=== PATIENT | male | born 1940 | race Asian ===

== ENCOUNTER 2016-09-19 10:53 | Outpatient (CLI) | payer OTHER, MEDICARE ==
[~2016-09-19 10:53] MED LIST: BENICAR HCT1 TA2 PO; CARV25TA PO; DIGOXIN0.25 MG PO; ELIQUIS5 MG OR; FURO40TA93 PO; SPIRONOLACT25 MG PO; TAMSULOSIN0.4 MG PO
[2016-09-19 11:17] LABS: POTASSIUM 3.2 mmol/L (3.6-5.2)
== END 2016-09-19 19:32 | disposition home or self-care (01) ==
LOC: LABW 10:53
PROVIDERS: Internal Medicine Cardiovascular Disease
DX: Z79.899 Other long term (current) drug therapy (principal); R06.02 Shortness of breath; Z51.81 Encounter for therapeutic drug level monitoring
CPT/HCPCS: 36415; 80048; 83880

== ENCOUNTER 2016-10-08 05:41 | Inpatient (IN) | payer OTHER, MEDICARE ==
[2016-10-08] VITALS (7 sets, daily range): BP systolic 86–111; BP diastolic 45–69; TEMP 97.4–98.4; Ht 167.6 cm; Wt 74.4 kg
[~2016-10-08] VITALS: Ht 167.6 cm; Wt 74.4 kg
[2016-10-08] MEDS ORDERED: FUROSEMIDE40 MG PO (06:06)
[2016-10-08] MEDS ORDERED: ASPIRIN81 M2 PO (06:07)
[2016-10-08 06:34] LABS: POTASSIUM 3.9 mmol/L (3.6-5.2)
[2016-10-08 06:38] LABS: PLATELET COUNT 214 K/uL (142-355)
[2016-10-08 06:44] LABS: PARTIAL THROMBOPLASTIN TIME 24.5 SECONDS (24.5-33.6)
[2016-10-09] VITALS: BP 97/40; TEMP 98.8
[2016-10-09 04:00] VITALS: BP 110/54; TEMP 98
[2016-10-09 06:08] LABS: POTASSIUM 2.9 mmol/L (3.6-5.2)
[2016-10-09 06:40] LABS: PLATELET COUNT 186 K/uL (142-355)
[2016-10-09 08:00] VITALS: BP 118/55; TEMP 97.2
[2016-10-09 09:10] VITALS: BP 89/53; BP 92/54; BP 94/55
--- NOTE | 2016-10-09 09:10 | NUR ---
ORTHOSTATIC VITALS PERFORMED: SUPINE 94/55 P 63; SITTING 92/54 P 64; STANDING 89/53 P 63
[2016-10-09 12:00] VITALS: BP 99/56; TEMP 98
--- NOTE | 2016-10-09 14:10 | NUR ---
D/C INSTRUCTIONS GIVEN TO AND PT. IV L FA 20G D/C'D CATH TIP INTACT. VERBALIZED UNDERSTANDING INSTRUCTIONS.
--- NOTE | 2016-10-11 11:59 | NUR ---
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
== END 2016-10-09 14:35 | disposition home or self-care (01) | DRG 309 ==
LOC: ED 05:41 → MED/SURG 06:45
PROVIDERS: Internal Medicine
DX: I48.91 Unspecified atrial fibrillation (principal); I50.22 Chronic systolic (congestive) heart failure; S00.83XA Contusion of other part of head, initial encounter; I95.89 Other hypotension; W19.XXXA Unspecified fall, initial encounter; Y93.89 Activity, other specified; Y92.89 Other specified places as the place of occurrence of the external cause
CPT/HCPCS: 36415; 80053; 80162; 81000; 83735; 83880; 85027; 85610; 85730; 93005; 96360

== ENCOUNTER 2016-10-31 12:06 | Outpatient (CLI) | payer OTHER, MEDICARE ==
[~2016-10-31 12:06] MED LIST changes: +ASPIRIN81 M2 PO; +FUROSEMIDE40 MG PO
[2016-10-31 12:41] LABS: POTASSIUM 2.8 mmol/L (3.6-5.2)
== END 2016-10-31 19:03 | disposition home or self-care (01) ==
LOC: LABW 12:06
PROVIDERS: Internal Medicine
DX: R60.0 Localized edema (principal)
CPT/HCPCS: 36415; 80048

== ENCOUNTER 2016-11-07 12:44 | Outpatient (CLI) | payer OTHER, MEDICARE ==
[2016-11-07 13:18] LABS: POTASSIUM 3.6 mmol/L (3.6-5.2)
== END 2016-11-07 22:52 | disposition home or self-care (01) ==
LOC: LABW 12:44
PROVIDERS: Internal Medicine Cardiovascular Disease
DX: R06.02 Shortness of breath (principal); Z79.899 Other long term (current) drug therapy; Z51.81 Encounter for therapeutic drug level monitoring
CPT/HCPCS: 36415; 80048; 83880

== ENCOUNTER 2016-11-28 14:44 | Outpatient (CLI) | payer OTHER, MEDICARE ==
[2016-11-28 15:19] LABS: POTASSIUM 4.5 mmol/L (3.6-5.2)
== END 2016-11-28 19:41 | disposition home or self-care (01) ==
LOC: LABW 14:44
PROVIDERS: Internal Medicine Cardiovascular Disease
DX: R06.02 Shortness of breath (principal); Z79.899 Other long term (current) drug therapy; Z51.81 Encounter for therapeutic drug level monitoring
CPT/HCPCS: 36415; 80048; 83880

== ENCOUNTER 2016-12-12 12:23 | Outpatient (CLI) | payer OTHER, MEDICARE ==
[2016-12-12 12:54] LABS: POTASSIUM 3.3 mmol/L (3.6-5.2)
== END 2016-12-12 13:23 | disposition home or self-care (01) ==
LOC: LABW 12:23
PROVIDERS: Internal Medicine Cardiovascular Disease
DX: I50.20 Unspecified systolic (congestive) heart failure (principal); Z79.899 Other long term (current) drug therapy; R06.02 Shortness of breath; Z51.81 Encounter for therapeutic drug level monitoring
CPT/HCPCS: 36415; 80048; 83880

== ENCOUNTER 2016-12-19 15:59 | Outpatient (CLI) | payer OTHER, MEDICARE ==
[2016-12-19 16:42] LABS: POTASSIUM 2.8 mmol/L (3.6-5.2)
== END 2016-12-19 19:10 | disposition home or self-care (01) ==
LOC: LABW 15:59
PROVIDERS: Internal Medicine Cardiovascular Disease
DX: Z79.899 Other long term (current) drug therapy (principal); Z51.81 Encounter for therapeutic drug level monitoring
CPT/HCPCS: 36415; 80048

== ENCOUNTER 2016-12-26 10:41 | Outpatient (CLI) | payer OTHER, MEDICARE ==
[2016-12-26 11:02] LABS: POTASSIUM 3.8 mmol/L (3.6-5.2)
== END 2016-12-26 19:06 | disposition home or self-care (01) ==
LOC: LABW 10:41
PROVIDERS: Internal Medicine Cardiovascular Disease
DX: I50.9 Heart failure, unspecified (principal)
CPT/HCPCS: 36415; 80048; 83880

== ENCOUNTER 2017-01-02 10:39 | Outpatient (CLI) | payer OTHER, MEDICARE ==
[2017-01-02 11:01] LABS: POTASSIUM 4.3 mmol/L (3.6-5.2)
== END 2017-01-02 19:05 | disposition home or self-care (01) ==
LOC: LABW 10:39
PROVIDERS: Internal Medicine Cardiovascular Disease
DX: I50.9 Heart failure, unspecified (principal); Z79.899 Other long term (current) drug therapy; Z51.81 Encounter for therapeutic drug level monitoring
CPT/HCPCS: 36415; 80048; 83880

== ENCOUNTER 2017-01-15 09:19 | Outpatient (CLI) | payer OTHER, MEDICARE ==
[2017-01-15 09:43] LABS: POTASSIUM 4.5 mmol/L (3.6-5.2)
== END 2017-01-15 11:15 | disposition home or self-care (01) ==
LOC: LABW 09:19
PROVIDERS: Internal Medicine Cardiovascular Disease
DX: I50.9 Heart failure, unspecified (principal); Z79.899 Other long term (current) drug therapy; Z51.81 Encounter for therapeutic drug level monitoring
CPT/HCPCS: 36415; 80048; 83880

== ENCOUNTER 2017-01-16 12:37 | Outpatient (CLI) | payer OTHER, MEDICARE | END 2017-01-16 13:45 | disposition home or self-care (01) | LOC: RESP 12:37 | DX: E78.4 Other hyperlipidemia (principal); I10 Essential (primary) hypertension; R53.83 Other fatigue | CPT/HCPCS: 93306 ==

== ENCOUNTER 2017-01-23 11:52 | Outpatient (CLI) | payer OTHER, MEDICARE ==
[2017-01-23 12:14] LABS: POTASSIUM 4.2 mmol/L (3.6-5.2)
== END 2017-01-23 19:32 | disposition home or self-care (01) ==
LOC: LABW 11:52
PROVIDERS: Internal Medicine Cardiovascular Disease
DX: I50.9 Heart failure, unspecified (principal); Z79.899 Other long term (current) drug therapy; Z51.81 Encounter for therapeutic drug level monitoring
CPT/HCPCS: 36415; 80048; 83880

== ENCOUNTER 2017-03-18 08:23 | Outpatient (CLI) | payer OTHER, MEDICARE ==
[2017-03-18 08:59] LABS: PLATELET COUNT 156 K/uL (142-355)
[2017-03-18 09:30] LABS: POTASSIUM 5.1 mmol/L (3.6-5.2)
== END 2017-03-18 09:30 | disposition home or self-care (01) ==
LOC: LABW 08:23
PROVIDERS: Internal Medicine
DX: E11.9 Type 2 diabetes mellitus without complications (principal); I48.91 Unspecified atrial fibrillation; N40.0 Benign prostatic hyperplasia without lower urinary tract symptoms
CPT/HCPCS: 36415; 80053; 80061; 81000; 83036; 84153; 84443; 85027

== ENCOUNTER 2017-08-14 10:43 | Outpatient (CLI) | payer OTHER, MEDICARE ==
[2017-08-14 11:23] LABS: POTASSIUM 5.3 mmol/L (3.6-5.2)
[2017-09-15] MEDS ORDERED: BUMETANIDE2 MG PO (11:41)
== END 2017-08-14 21:12 | disposition home or self-care (01) ==
LOC: LABW 10:43
PROVIDERS: Internal Medicine Cardiovascular Disease
DX: I50.9 Heart failure, unspecified (principal)
CPT/HCPCS: 36415; 80048; 83880

== ENCOUNTER 2017-09-04 10:33 | Outpatient (CLI) | payer OTHER, MEDICARE ==
[2017-09-04 11:10] LABS: POTASSIUM 3.9 mmol/L (3.6-5.2)
[2017-09-15] MEDS ORDERED: BUMETANIDE2 MG PO (11:41)
== END 2017-09-04 19:04 | disposition home or self-care (01) ==
LOC: LABW 10:33
PROVIDERS: Internal Medicine Cardiovascular Disease
DX: Z79.899 Other long term (current) drug therapy (principal); Z51.81 Encounter for therapeutic drug level monitoring; I50.9 Heart failure, unspecified
CPT/HCPCS: 36415; 80048; 80162; 83880

== ENCOUNTER 2017-09-15 11:23 | Observation (INO) | payer OTHER, MEDICARE ==
[~2017-09-15] VITALS: Ht 172.7 cm; Wt 74.0 kg
[2017-09-15 11:39] VITALS: BP 141/80; TEMP 96.6
[2017-09-15] MEDS ORDERED: POT CHLORIDE PO (11:40)
[2017-09-15] MEDS ORDERED: BUMETANIDE2 MG PO ×2 (11:41)
[2017-09-15 13:52] LABS: POTASSIUM 4.4 mmol/L (3.6-5.2)
[2017-09-15 13:54] LABS: PLATELET COUNT 137 K/uL (142-355)
[2017-09-15 18:02] VITALS: BP 96/69; TEMP 97; Ht 172.7 cm; Wt 74.0 kg
[2017-09-15] MEDS ORDERED: SPIR50TA8 PO (18:11)
[2017-09-15] MEDS ORDERED: POT CHLORIDE10 MEQ PO (18:12)
[2017-09-15] MEDS ORDERED: BUMEX1 MG PO (18:12)
[2017-09-15 20:00] VITALS: BP 94/57; TEMP 97.5
[2017-09-16] VITALS: BP 109/58; TEMP 98.2
[2017-09-16 04:00] VITALS: BP 98/60; TEMP 97.6
[2017-09-16 04:04] LABS: PLATELET COUNT 115 K/uL (142-355)
[2017-09-16 04:31] LABS: POTASSIUM 4.3 mmol/L (3.6-5.2)
[2017-09-16 08:00] VITALS: BP 103/55; TEMP 97.7
[2017-09-16 12:00] VITALS: BP 97/61; TEMP 97.3
[2017-09-16 15:53] VITALS: BP 93/63; TEMP 97.9
== END 2017-09-16 19:35 | disposition short-term general hospital (02) ==
LOC: ED 11:23 → MED/SURG 16:41
PROVIDERS: Specialist; ADMIT Internal Medicine
DX: I50.22 Chronic systolic (congestive) heart failure (principal); I48.2 Chronic atrial fibrillation; R06.89 Other abnormalities of breathing; I12.9 Hypertensive chronic kidney disease with stage 1 through stage 4 chronic kidney disease, or unspecified chronic kidney disease; N18.4 Chronic kidney disease, stage 4 (severe)
CPT/HCPCS: 36415; 36600; 80048; 80053; 81000; 82550; 82805; 83605; 83735; 83880; 84100; 84484; 85007; 85027; 85379; 87040; 93005; 94760; 96372; 96374; 99220; 99284; G0378; J1650; J2060

== ENCOUNTER 2017-09-16 19:38 | Outpatient (CLI) | payer OTHER, MEDICARE ==
[~2017-09-16 19:38] MED LIST changes: +BUMETANIDE2 MG PO; +BUMEX1 MG PO; +POT CHLORIDE PO; +POT CHLORIDE10 MEQ PO; +SPIR50TA8 PO
== END 2017-09-16 20:47 | disposition short-term general hospital (02) ==
LOC: AMB 19:38
DX: I50.22 Chronic systolic (congestive) heart failure (principal); I48.2 Chronic atrial fibrillation; R06.89 Other abnormalities of breathing; I12.9 Hypertensive chronic kidney disease with stage 1 through stage 4 chronic kidney disease, or unspecified chronic kidney disease; N18.4 Chronic kidney disease, stage 4 (severe)
CPT/HCPCS: A0425; A0429

== ENCOUNTER 2017-10-15 03:11 | Emergency (ER) | payer OTHER, MEDICARE ==
[~2017-10-15] VITALS: Ht 172.7 cm; Wt 67.1 kg
[2017-10-15 03:16] VITALS: TEMP 97.4
[2017-10-15 03:47] LABS: PLATELET COUNT 153 K/uL (142-355)
[2017-10-15 04:25] LABS: PARTIAL THROMBOPLASTIN TIME 25.2 SECONDS (24.5-33.6)
[2017-10-15 05:46] LABS: POTASSIUM 5.6 mmol/L (3.6-5.2)
[2017-10-15 06:20] VITALS: BP 106/61
== END 2017-10-15 06:27 | disposition home or self-care (01) ==
LOC: ED 03:11
DX: K92.0 Hematemesis (principal); I48.91 Unspecified atrial fibrillation
CPT/HCPCS: 36415; 74022; 80053; 85027; 85610; 85730; 93005; 96365; 96374; 96375; 99284; J2405; J3490

== ENCOUNTER 2017-10-16 11:47 | Outpatient (CLI) | payer OTHER, MEDICARE ==
[2017-10-16 12:05] LABS: PLATELET COUNT 131 K/uL (142-355)
[2017-10-16 12:17] LABS: POTASSIUM 4.1 mmol/L (3.6-5.2)
== END 2017-10-16 19:23 | disposition home or self-care (01) ==
LOC: LABW 11:47
PROVIDERS: Internal Medicine
DX: K92.0 Hematemesis (principal)
CPT/HCPCS: 36415; 80048; 85027

== ENCOUNTER 2017-10-17 11:26 | Day surgery (SDC) | payer OTHER, MEDICARE ==
[~2017-10-17] VITALS: Ht 30.5 cm; Wt 0.0 kg
[2017-10-17 14:04] LABS: PLATELET COUNT 150 K/uL (142-355)
== END 2017-10-17 15:40 | disposition home or self-care (01) ==
LOC: OR 11:26
PROVIDERS: Student in an Organized Health Care Education/Training Program
PROC: 0DJ08ZZ Inspection of Upper Intestinal Tract, Via Natural or Artificial Opening Endoscopic (ICD-10-PCS; principal; 2017-10-17)
DX: K29.60 Other gastritis without bleeding (principal); K25.9 Gastric ulcer, unspecified as acute or chronic, without hemorrhage or perforation; K44.9 Diaphragmatic hernia without obstruction or gangrene; K92.2 Gastrointestinal hemorrhage, unspecified; Z87.11 Personal history of peptic ulcer disease; K92.0 Hematemesis; R11.0 Nausea
CPT/HCPCS: 85027; J2001; J2704

== ENCOUNTER 2017-10-21 08:11 | Outpatient (CLI) | payer OTHER, MEDICARE ==
[2017-10-21 08:50] LABS: PLATELET COUNT 116 K/uL (142-355)
[2017-10-21 08:58] LABS: POTASSIUM 3.5 mmol/L (3.6-5.2)
== END 2017-10-21 19:17 | disposition home or self-care (01) ==
LOC: LABW 08:11
PROVIDERS: Student in an Organized Health Care Education/Training Program
DX: K92.0 Hematemesis (principal); E86.0 Dehydration; I42.8 Other cardiomyopathies
CPT/HCPCS: 36415; 80053; 85027

== ENCOUNTER 2017-10-28 08:12 | Outpatient (CLI) | payer OTHER, MEDICARE ==
[2017-10-28 08:27] LABS: PLATELET COUNT 158 K/uL (142-355)
[2017-10-28 09:53] LABS: POTASSIUM 4.3 mmol/L (3.6-5.2)
== END 2017-10-28 19:34 | disposition home or self-care (01) ==
LOC: LABW 08:12
PROVIDERS: Internal Medicine
DX: K92.0 Hematemesis (principal)
CPT/HCPCS: 36415; 80069; 85027

== ENCOUNTER 2017-11-04 09:00 | Outpatient (CLI) | payer OTHER, MEDICARE ==
[2017-11-04 09:22] LABS: PLATELET COUNT 139 K/uL (142-355)
[2017-11-04 09:32] LABS: POTASSIUM 4.2 mmol/L (3.6-5.2)
== END 2017-11-04 20:05 | disposition home or self-care (01) ==
LOC: LABW 09:00
PROVIDERS: Internal Medicine
DX: K92.0 Hematemesis (principal)
CPT/HCPCS: 36415; 80069; 85027

== ENCOUNTER 2017-11-20 13:43 | Outpatient (CLI) | payer OTHER, MEDICARE ==
[2017-11-20 14:14] LABS: POTASSIUM 3.5 mmol/L (3.6-5.2)
== END 2017-11-21 13:43 | disposition home or self-care (01) ==
LOC: LABW 13:43
PROVIDERS: Internal Medicine Cardiovascular Disease
DX: I50.9 Heart failure, unspecified (principal)
CPT/HCPCS: 80048

== ENCOUNTER 2017-11-27 12:00 | Outpatient (CLI) | payer OTHER, MEDICARE ==
[2017-11-27 12:42] LABS: POTASSIUM 4.4 mmol/L (3.6-5.2)
== END 2017-11-27 18:20 | disposition home or self-care (01) ==
LOC: LABW 12:00
PROVIDERS: Internal Medicine Cardiovascular Disease
DX: I50.9 Heart failure, unspecified (principal); Z79.899 Other long term (current) drug therapy; Z51.81 Encounter for therapeutic drug level monitoring
CPT/HCPCS: 36415; 80048; 83880